=== PATIENT | male | born 1945 | race Caucasian/White ===

== ENCOUNTER → 2023-04-16 | Outpatient (CLI) | payer OTHER ==
[~2023-04-16] VITALS: Ht 182.9 cm; Wt 92.5 kg
[~2023-04-16] MED LIST: ADENOSINE 78 MG in GIVE UN-DILUTED 0 ML IV ONE
== END | disposition home or self-care (01) ==
LOC: XYW 08:42
PROVIDERS: ATTEND Internal Medicine
DX: Z01.818 Encounter for other preprocedural examination (principal); R07.89 Other chest pain; I10 Essential (primary) hypertension; R06.02 Shortness of breath; M54.16 Radiculopathy, lumbar region; M54.12 Radiculopathy, cervical region; E78.5 Hyperlipidemia, unspecified
CPT/HCPCS: 78452; 93017; A9500; J0153